=== PATIENT | female | born 1965 | race Caucasian/White ===

== ENCOUNTER 2016-07-25 10:46 | Emergency (ER) | payer MEDICAID ==
[~2016-07-25] VITALS: Ht 154.9 cm; Wt 65.8 kg
[~2016-07-25 10:46] MED LIST: ADDERALL PO; CEPH500C16 PO; LEVO0.083 PO; [UNRECOGNIZED DRUG - CODE] PO
[2016-07-25 10:48] VITALS: BP 158/104
--- NOTE | 2016-07-25 10:59 | NUR ---
PATIENT IS A 51 YO FEMALE BIB [facility] FOR PREBOOK EXAM, HAS SMALL LUMP ON RIGHT PARIETAL AREA, REDDENED AND SWOLLEN. MD EXAM PENDING.
--- NOTE | 2016-07-25 11:51 | NUR ---
waiting for ct results patient stable.
[2016-07-25 12:11] VITALS: BP 158/104
--- NOTE | 2016-07-25 12:12 | NUR ---
Patient discharged with v/s stable. Written and verbal after care instructions given and explained. Patient verbalized understanding. Police with in custody. All questions addressed prior to discharge. Advised to follow up with PMD.
== END 2016-07-25 12:12 ==
LOC: MED 10:46
DX: S06.0X0A Concussion without loss of consciousness, initial encounter (principal); E11.9 Type 2 diabetes mellitus without complications; I10 Essential (primary) hypertension; E03.9 Hypothyroidism, unspecified; Z79.899 Other long term (current) drug therapy; S00.03XA Contusion of scalp, initial encounter; W18.12XA Fall from or off toilet with subsequent striking against object, initial encounter; Y93.89 Activity, other specified; Y92.098 Other place in other non-institutional residence as the place of occurrence of the external cause; Y99.8 Other external cause status
CPT/HCPCS: 70450; 99284

== ENCOUNTER 2019-09-13 01:10 | Emergency (ER) | payer MEDICAID, SELFPAY ==
[~2019-09-13] VITALS: Ht 167.6 cm; Wt 53.5 kg
--- NOTE | 2019-09-13 01:10 | NUR ---
PT RAQUEL GARBERS. TAKEN TO TENT
[2019-09-13 01:30] VITALS: BP 118/76
--- NOTE | 2019-09-13 01:50 | NUR ---
COVID SWAB COLLECTED AND WALKED OVER TO LAB.
[2019-09-13 02:29] VITALS: BP 118/76
--- NOTE | 2019-09-13 02:30 | NUR ---
Patient discharged with v/s stable. Written and verbal after care instructions given and explained. Patient verbalized understanding. Ambulatory with steady gait. All questions addressed prior to discharge. Advised to follow up with PMD.
== END 2019-09-13 02:30 | disposition home or self-care (01) ==
LOC: MED 01:10
DX: M25.521 Pain in right elbow (principal); E11.9 Type 2 diabetes mellitus without complications; I10 Essential (primary) hypertension; E03.9 Hypothyroidism, unspecified; Z79.899 Other long term (current) drug therapy
CPT/HCPCS: 99283; U0003

== ENCOUNTER 2022-06-15 08:56 | Emergency (ER) | payer MEDICAID ==
[~2022-06-15] VITALS: Ht 172.7 cm; Wt 65.8 kg
[2022-06-15 08:58] VITALS: BP 124/78
--- NOTE | 2022-06-15 09:04 | NUR ---
57 YO FEMALE BIBA CAME FROM HOME, WITH C/O OF 8/10 ABD PAIN FOR ABOUT 1X WEEK. PATIENT STATES IT FELT LIKE CRAMPING AT FIRST AND BECAME WORSE. STATES IT FEELS HOT AND BULGING WITH SHARP PAINS. NKA PMH: COLON BLEEDING.
--- NOTE | 2022-06-15 09:34 | NUR ---
ATTEMPTED TO COLLECT URINE AT THIS TIME. PATIENT REFUSED.
--- NOTE | 2022-06-15 09:54 | NUR ---
PT BACK FROM CT
[2022-06-15 10:19] LABS: BASOPHILS % (AUTO) 0.6 % (0.0-2.0); EOSINOPHILS # (AUTO) 0.2 K/uL (0-0.4); EOSINOPHILS % (AUTO) 3.4 % (0.0-4.0); HEMATOCRIT 35.2 % (36-48); LYMPHOCYTES # (AUTO) 1.2 K/uL (2.5-16.5); LYMPHOCYTES % (AUTO) 23.6 % (20.5-51.1); MEAN CORPUSCULAR HEMOGLOBIN 32 pg (27-31); MEAN CORPUSCULAR HGB CONC 34 g/dL (33-37); MEAN CORPUSCULAR VOLUME 93.2 fL (80-94); MONOCYTES # (AUTO) 0.4 K/uL (0.8-1.0); MONOCYTES % (AUTO) 8.1 % (1.7-9.3); NEUTROPHILS # (AUTO) 3.3 K/uL (1.8-7.7); NEUTROPHILS % (AUTO) 64.3 % (42.2-75.2); PLATELET COUNT (AUTO) 236 K/uL (140-450); RED BLOOD CELL COUNT(AUTO) 3.78 MIL/uL (4.20-5.40); RED CELL DISTRIBUTION WIDTH 13.6 % (11.6-13.7); WHITE BLOOD COUNT (AUTO) 5.1 K/uL (4.8-10.8)
[2022-06-15 10:29] LABS: ANION GAP 10.1 (8-16); CARBON DIOXIDE 29.3 mmol/L (21-32); CREATININE 0.9 mg/dL (0.6-1.3); POTASSIUM 4.4 mmol/L (3.5-5.1); TOTAL BILIRUBIN 0.3 mg/dL (0.0-1.0)
[2022-06-15 10:40] LABS: APPEARANCE,URINE CLEAR (CLEAR); BILIRUBIN,URINE 1+ (NEGATIVE); BLOOD, URINE 2+ (NEGATIVE); COLOR,URINE YELLOW (YELLOW); LEUKOCYTE ESTERASE ,URINE 2+ (NEGATIVE); NITRITE, URINE NEGATIVE (NEGATIVE); UGLUCOSE NEGATIVE (NEGATIVE)
[2022-06-15] MEDS ORDERED: POLY17PD50 PO (10:51)
[2022-06-15] MEDS ORDERED: BISA-213 RC (10:51)
[2022-06-15] MEDS ORDERED: CEPH500C16 PO (10:52)
[2022-06-15 11:13] VITALS: BP 135/90
--- NOTE | 2022-06-15 11:15 | NUR ---
Patient discharged with v/s stable. Written and verbal after care instructions given and explained. Patient alert, oriented and verbalized understanding of instructions. Ambulatory with steady gait. All questions addressed prior to discharge. ID band removed. Patient advised to follow up with PMD. Rx of BISACODYL, CEPHALEXIN, PLYETHYLENE given. Patient educated on indication of medication including possible reaction and side effects. Opportunity to ask questions provided and answered.
[2022-06-15 11:38] LABS: TRICHOMONAS,URINE None Seen /HPF (None Seen); YEAST,URINE None Seen /HPF (None Seen)
--- NOTE | 2022-06-15 12:03 | NUR ---
PT. REQUESTED [facility]. [employer] CALLED AND RIDE ARRANGED TO PT.S HOME ADDRESS. PT. STABLE TO LEAVE. NO ACUTE DISTRESS
== END 2022-06-15 11:13 | disposition home or self-care (01) ==
LOC: MED 08:56
DX: N30.01 Acute cystitis with hematuria (principal); K59.09 Other constipation; E11.9 Type 2 diabetes mellitus without complications; E03.9 Hypothyroidism, unspecified; I10 Essential (primary) hypertension; Z79.4 Long term (current) use of insulin; Z79.899 Other long term (current) drug therapy
CPT/HCPCS: 36415; 80053; 81001; 83690; 85025; 87086; 99284

== ENCOUNTER 2023-03-23 15:42 | Emergency (ER) | payer MEDICAID ==
[~2023-03-23] VITALS: Ht 170.2 cm; Wt 68.0 kg
[~2023-03-23 15:42] MED LIST changes: +BISA-213 RC; +POLY17PD50 PO
[2023-03-23 15:47] VITALS: BP 227/121; PULSE 80; RESP 18; TEMP 97.9; O2SAT 97
[2023-03-23] MEDS ORDERED: ENALAPRILAT 2.5 MG/2 ML VIAL IVP ONE (16:10)
[2023-03-23 16:30] VITALS: O2SAT 97
[2023-03-23] MEDS ORDERED: IBUP-2213 PO (17:52)
[2023-03-23] MEDS ORDERED: PRED20TA5 PO (17:52)
[2023-03-23 18:06] LABS: FLU A ANTIGEN negative (NEGATIVE); FLU B ANTIGEN NEGATIVE (NEGATIVE)
[2023-03-23 19:08] VITALS: BP 178/91; PULSE 77; RESP 19; TEMP 97.9; O2SAT 100
== END 2023-03-23 19:09 | disposition home or self-care (01) ==
LOC: MED 15:42
DX: I10 Essential (primary) hypertension (principal); Z20.822 Contact with and (suspected) exposure to COVID-19; R05.9 Cough, unspecified; E03.9 Hypothyroidism, unspecified; Z79.899 Other long term (current) drug therapy
CPT/HCPCS: 87426; 87804; 96374; 99283; J3490

== ENCOUNTER 2023-07-16 17:59 | Emergency (ER) | payer MEDICAID ==
[~2023-07-16] VITALS: Ht 167.6 cm; Wt 63.5 kg
[~2023-07-16 17:59] MED LIST changes: +IBUP-2213 PO; +PRED20TA5 PO
[2023-07-16 18:14] VITALS: BP 158/81; PULSE 72; RESP 16; TEMP 98.1; O2SAT 100
[2023-07-16 19:31] LABS: BASOPHILS % (AUTO) 0.2 % (0.0-2.0); EOSINOPHILS # (AUTO) 0.1 K/uL (0-0.4); EOSINOPHILS % (AUTO) 1.4 % (0.0-4.0); HEMATOCRIT 33.4 % (36-48); HEMOGLOBIN 11.5 g/dL (12.0-16.0); LYMPHOCYTES # (AUTO) 0.6 K/uL (2.5-16.5); LYMPHOCYTES % (AUTO) 9.9 % (20.5-51.1); MEAN CORPUSCULAR HEMOGLOBIN 31 pg (27-31); MEAN CORPUSCULAR HGB CONC 34 g/dL (33-37); MEAN CORPUSCULAR VOLUME 91.5 fL (80-94); MONOCYTES % (AUTO) 15.3 % (1.7-9.3); NEUTROPHILS # (AUTO) 4.7 K/uL (1.8-7.7); NEUTROPHILS % (AUTO) 73.2 % (42.2-75.2); PLATELET COUNT (AUTO) 268 K/uL (140-450); RED BLOOD CELL COUNT(AUTO) 3.65 MIL/uL (4.20-5.40); RED CELL DISTRIBUTION WIDTH 13.9 % (11.6-13.7); WHITE BLOOD COUNT (AUTO) 6.4 K/uL (4.8-10.8)
[2023-07-16 19:46] LABS: ANION GAP 13.2 (8-16); CALCIUM 9.1 mg/dL (8.5-10.1); CARBON DIOXIDE 26.9 mmol/L (21-32); CREATININE 1.2 mg/dL (0.6-1.3); POTASSIUM 3.1 mmol/L (3.5-5.1)
[2023-07-16 20:05] VITALS: BP 149/82; PULSE 68; RESP 18; TEMP 98; O2SAT 100
[2023-07-16] MEDS: POTASSIUM CHLORIDE 10 MEQ TABER PO ONE (20:36)
== END 2023-07-16 20:40 | disposition home or self-care (01) ==
LOC: MED 17:59
DX: M79.672 Pain in left foot (principal); E87.6 Hypokalemia; E11.9 Type 2 diabetes mellitus without complications; I10 Essential (primary) hypertension; E03.9 Hypothyroidism, unspecified; Z86.73 Personal history of transient ischemic attack (TIA), and cerebral infarction without residual deficits; Z86.69 Personal history of other diseases of the nervous system and sense organs; Z79.1 Long term (current) use of non-steroidal anti-inflammatories (NSAID); Z79.2 Long term (current) use of antibiotics; Z79.899 Other long term (current) drug therapy; Z59.00 Homelessness unspecified
CPT/HCPCS: 36415; 71045; 80048; 81002; 81025; 85025; 99284